=== PATIENT | female | born 1980 | race Caucasian/White ===

== ENCOUNTER 2018-04-20 16:03 | Inpatient (IN) | payer OTHER ==
[2018-04-20] MEDS ORDERED: NS 1,000 ML IV ONE (16:05)
--- NOTE | 2018-04-20 16:27 | EDPHY ---
H & P Time Seen by Provider: 04/20/18 16:05 HPI/ROS: HPI Lower abdominal pain. 38-year-old female by private vehicle with her . This patient reports that on Tuesday she developed mid to upper abdominal pain described as cramping achy across her mid abdomen and around her umbilicus. She reports that she had associated nausea with vomiting Tuesday night. She reports that she felt somewhat better Tuesday but Tuesday the pain started to migrate down to her right lower quadrant and has persisted. She has had some diarrhea today. She went to [facility] was seen by a nurse practitioner was told to come to the emergency department to be evaluated for possible appendicitis. Last meal included some saltines about an hour ago. No previous abdominal surgical history. Last menstrual period was April 14. ROS: Constitutional: No fever, no chills. No weakness. Eyes: No discharge. No changes in vision. ENT: No sore throat. No nasal congestion or rhinorrhea. Respiratory: No cough. No shortness of breath. Cardiac: No chest pain, no palpitations. Gastrointestinal: As above, no diarrhea. Genitourinary: No hematuria. No dysuria or increased frequency with urination. Musculoskeletal: No back pain. No neck pain. No myalgias or arthralgias. Skin: No rashes. Neurological: No headache. No focal weakness or altered sensation. Past medical history: She denies any significant past medical history. She does not take any prescription medications. Social history: Here with her . Nonsmoker. No alcohol. Physical Exam: General Appearance: Alert, no distress. This patient is responding to questions appropriately and in full sentences. This patient appears well- hydrated and well-nourished. Eyes: Pupils equal and round no pallor or injection. No lid edema, erythema or injection. Respiratory: There are no retractions, lungs are clear to auscultation with good air movement bilaterally. Cardiovascular: Regular rate and rhythm. No murmur. Gastrointestinal: Abdomen is soft with moderate right lower quadrant/right adnexal tenderness on palpation, no masses, bowel sounds normal. No focal tenderness at McBurney's point. No Ramos sign. Neurological: Motor sensory function is grossly intact. Cranial nerves are normal. Gait is normal. Skin: Warm and dry, no rashes. Musculoskeletal: Neck is supple and nontender. Extremities are symmetrical. All joints range without pain or impingement. Psychiatric: No agitation. No depression. Database: EKG: Imaging: CT abdomen and pelvis with IV contrast: Significant for what appears to be a retrocecal appendicitis. With possibly a small abscess near the tip of the cecum. What is seen of the appendix measures 9 mm in diameter. This caudal to that there is a 2 cm fluid-filled loculation which may be a small abscess. The right ovary appears okay. Pelvic venous congestion is noted. There is some wall thickening of the ileum and jejunum suggestive of an enteritis. Results were discussed with staff radiologist Dr. Johnathan Godoy. Procedures: Emergency department course: Vital signs reviewed. She is mildly tachycardic. Vital signs otherwise normal. IV was placed. She was started on IV normal saline with 1 L to be given over the next hour. At this time she declines pain medication or antiemetics. I discussed workup and CT scan for evaluation of acute appendicitis. She endorses. 5:45 p.m., patient re-evaluated. Results of CT scan and diagnosis of appendicitis discussed with her. Her medication allergies were reviewed. She will be started on Flagyl and ciprofloxacin in the emergency department. Right now she is declining pain medication. General surgery paged. 5:50 p.m., spoke with Dr. Janet Marinelli. Case discussed in detail with her. She will see this patient in the emergency department shortly and plan to admit the patient for operative management of acute appendicitis. The patient's remaining emergency department course under my care has been uneventful. She was admitted to the operating room under the care of Dr. Janet Marinelli. Differential Diagnosis: The differential diagnosis on this patient includes but is not limited to appendicitis, ruptured ovarian cyst, ovarian torsion, ectopic , urinary tract infection, ureterolithiasis, colitis. This represents a partial list of diagnoses considered. These considerations are based on history, physical exam, past history, reassessment and diagnostic testing. Smoking Status: Never smoked Constitutional: Initial Vital Signs Temperature (C) 36.8 C 04/20/18 16:07 Heart Rate 112 H 04/20/18 16:07 Respiratory Rate 16 04/20/18 16:07 Blood Pressure 102/63 04/20/18 16:07 O2 Sat (%) 98 04/20/18 16:07 O2 Delivery Mode Room Air Allergies/Adverse Reactions: No Known Allergies Allergy (Unverified 04/20/18 16:07) Home Medications: Medication Instructions Recorded NK [No Known Home Meds] 04/20/18 Medical Decision Making - Diagnostics Imaging Results: Imaging Impressions Abdomen CT 04/20/18 16:51 Impression: 1. The retrocecal appendix is partially visualized and appears thickened with adjacent periappendiceal edema and a possible contained 2.1 x 1.8 x 2.6 cm fluid and air-filled abscess near the expected appendiceal tip. The study is limited by the lack of enteric contrast and the paucity of intra-abdominal adipose. Nonetheless, surgical consultation is advised. There is free fluid inferior the right hepatic lobe and in the pelvic cul-de-sac. There is no evidence of pneumoperitoneum. 2. Suspect concurrent jejunal-ileal enteritis. 3. Pfu-nwpsm-jn-characterize hypodensities associated with the liver, and a tiny cortical cyst in lower pole the right kidney. 4. Appropriately-positioned intrauterine device. 5. Pelvic venous congestion. Findings were discussed with Tracey Mckinney MD at 17:41, on 04/20/2018. - Data Points Laboratory Results: Laboratory Results 04/20/18 16:20 04/20/18 16:20 04/20/18 04/20/18 04/20/18 16:20 16:20 16:20 WBC 13.34 10^3/uL H 10^3/uL (3.80-9.50) RBC 4.57 10^6/uL 10^6/uL (4.18-5.33) Hgb 12.9 g/dL g/dL (12.6-16.3) Hct 38.6 % % (38.0-47.0) MCV 84.5 fL fL (81.5-99.8) MCH 28.2 pg pg (27.9-34.1) MCHC 33.4 g/dL g/dL (32.4-36.7) RDW 13.0 % % (11.5-15.2) Plt Count 171 10^3/uL 10^3/uL (150-400) MPV 9.0 fL fL (8.7-11.7) Neut % (Auto) 82.3 % H % (39.3-74.2) Lymph % (Auto) 7.1 % L % (15.0-45.0) [place] % (Auto) 9.9 % % (4.5-13.0) Eos % (Auto) 0.0 % L % (0.6-7.6) Baso % (Auto) 0.1 % L % (0.3-1.7) Nucleat RBC Rel Count 0.0 % % (0.0-0.2) Absolute Neuts (auto) 10.97 10^3/uL H 10^3/uL (1.70-6.50) Absolute Lymphs (auto) 0.95 10^3/uL L 10^3/uL (1.00-3.00) Absolute Monos (auto) 1.32 10^3/uL H 10^3/uL (0.30-0.80) Absolute Eos (auto) 0.00 10^3/uL L 10^3/uL (0.03-0.40) Absolute Basos (auto) 0.02 10^3/uL 10^3/uL (0.02-0.10) Absolute Nucleated RBC 0.00 10^3/uL 10^3/uL (0-0.01) Immature Gran % 0.6 % % (0.0-1.1) Immature Gran # 0.08 10^3/uL 10^3/uL (0.00-0.10) Sodium 137 mEq/L mEq/L (135-145) Potassium 3.6 mEq/L mEq/L (3.3-5.0) Chloride 101 mEq/L mEq/L (97-110) Carbon Dioxide 25 mEq/l mEq/l (22-31) Anion Gap 11 mEq/L mEq/L (8-16) BUN 8 mg/dL mg/dL (7-23) Creatinine 0.6 mg/dL mg/dL (0.6-1.0) Estimated GFR > 60 Glucose 104 mg/dL H mg/dL (70-100) Calcium 8.8 mg/dL mg/dL (8.5-10.4) Total Bilirubin 1.0 mg/dL mg/dL (0.1-1.4) Conjugated Bilirubin 0.2 mg/dL mg/dL (0.0-0.5) Unconjugated Bilirubin 0.8 mg/dL mg/dL (0.0-1.1) AST 16 IU/L IU/L (14-46) ALT 21 IU/L IU/L (9-52) Alkaline Phosphatase 56 IU/L IU/L (38-126) Total Protein 7.4 g/dL g/dL (6.3-8.2) Albumin 4.1 g/dL g/dL (3.5-5.0) Lipase 97 IU/L IU/L (23-300) Beta HCG, Qual NEGATIVE Urine Color Urine Appearance Urine pH Ur Specific [place] Urine Protein Urine Ketones Urine Blood Urine Nitrate Urine Bilirubin Urine Urobilinogen Ur Leukocyte Esterase Urine RBC Urine WBC Ur Epithelial Cells Urine Mucus Urine Glucose 04/20/18 16:10 WBC RBC Hgb Hct MCV MCH MCHC RDW Plt Count MPV Neut % (Auto) Lymph % (Auto) [place] % (Auto) Eos % (Auto) Baso % (Auto) Nucleat RBC Rel Count Absolute Neuts (auto) Absolute Lymphs (auto) Absolute Monos (auto) Absolute Eos (auto) Absolute Basos (auto) Absolute Nucleated RBC Immature Gran % Immature Gran # Sodium Potassium Chloride Carbon Dioxide Anion Gap BUN Creatinine Estimated GFR Glucose Calcium Total Bilirubin Conjugated Bilirubin Unconjugated Bilirubin AST ALT Alkaline Phosphatase Total Protein Albumin Lipase Beta HCG, Qual Urine Color YELLOW Urine Appearance CLEAR Urine pH 6.0 (5.0-7.5) Ur Specific [place] 1.010 (1.002-1.030) Urine Protein NEGATIVE (NEGATIVE) Urine Ketones NEGATIVE (NEGATIVE) Urine Blood 3+ H (NEGATIVE) Urine Nitrate NEGATIVE (NEGATIVE) Urine Bilirubin NEGATIVE (NEGATIVE) Urine Urobilinogen NEGATIVE EU EU (0.2-1.0) Ur Leukocyte Esterase NEGATIVE (NEGATIVE) Urine RBC 5-10 /hpf H /hpf (0-3) Urine WBC 1-3 /hpf /hpf (0-3) Ur Epithelial Cells TRACE /lpf /lpf (NONE-1+) Urine Mucus TRACE /lpf /lpf (NONE-1+) Urine Glucose NEGATIVE (NEGATIVE) Medications Given: Ciprofloxacin/Dextrose (Cipro 400 Mg (Premix)) 200 mls @ 200 mls/hr IV EDNOW ONE PRN Reason: Protocol Stop: 04/20/18 18:55 Last Admin: 04/20/18 18:10 Dose: 200 mls Discontinued Medications Sodium Chloride (Ns) 1,000 mls @ 0 mls/hr IV EDNOW ONE; Wide Open PRN Reason: Protocol Stop: 04/20/18 16:06 Last Admin: 04/20/18 16:25 Dose: 1,000 mls Departure - Departure Disposition: [facility] Inpatient Acute Clinical Impression: Lower abdominal pain, Acute appendicitis
[2018-04-20 16:28] LABS: PLATELET COUNT 171 10^3/uL (150-400)
[2018-04-20] MEDS ORDERED: IOPAMIDOL (ISOVUE-300) 100 ML BTL ONE (16:57)
[2018-04-20] MEDS ORDERED: CIPROFLOXACIN 400 MG/DEXTROSE 200 ML IV ONE (17:56)
[2018-04-20] MEDS ORDERED: LR 1,000 ML IV ONE (18:09)
[2018-04-20] MEDS ORDERED: fentaNYL 100 MCG/2 ML INJ ONE ×2 (18:18→20:20)
[2018-04-20] MEDS ORDERED: LIDOCAINE 2% 5 ML SDV ONE (18:18)
[2018-04-20] MEDS ORDERED: ROCURONIUM 50 MG/5 ML VIAL ONE (18:18)
[2018-04-20] MEDS ORDERED: PROPOFOL 200 MG/20 ML VIAL ONE (18:18)
[2018-04-20] MEDS ORDERED: ONDANSETRON 4 MG/2 ML VIAL ONE (18:20)
[2018-04-20] MEDS ORDERED: DEXAMETHASONE 4 MG/ML VIAL ONE (18:20)
[2018-04-20] MEDS ORDERED: BUPIVACAINE 0.5% 30 ML SDV ONE (18:21)
--- NOTE | 2018-04-20 18:31 | PDANEPAE ---
ANE History of Present Illness 38 year old female presents with symptoms of acute appendicitis now for OR for lap appy. ANE Past Medical History - Cardiovascular History Hx Hypertension: No Hx Arrhythmias: No Hx Chest Pain: No Hx Coronary Artery / Peripheral Vascular Disease: No Hx CHF / Valvular Disease: No Hx Palpitations: No - Pulmonary History Hx COPD: No Hx Asthma/Reactive Airway Disease: No Hx Recent Upper Respiratory Infection: No Hx Oxygen in Use at Home: No Hx Sleep Apnea: No - Endocrine History Hx Diabetes: No Hypothyroid: No Hyperthyroid: No Obesity: no - Renal History Hx Renal Disorders: No - Liver History Hx Hepatic Disorders: No - Neurological & Psychiatric Hx Hx Neurological and Psychiatric Disorders: No - Cancer History Hx Cancer: No - Congenital Disorder History Hx Congenital Disorders: No - GI History GERD: no - Chronic Pain History Chronic Pain: No ANE Review of Systems Review of systems is: negative Review of Systems: - Exercise capacity Exercise capacity: >=4 METS ANE Patient History - Allergies Allergies/Adverse Reactions: No Known Allergies Allergy (Unverified 04/20/18 16:07) - Home Medications Home medications: home medication list seen and reviewed Home Medications: NK [No Known Home Meds] 04/20/18 [Last Taken Unknown] - Anes Hx Anes Hx: no prior problems - Smoking Hx Smoking Status: Never smoked Marijuana use: No - Alcohol Use Alcohol Use: None - Family Anes Hx Family Anes Hx: neg - N/A ANE Labs/Vital Signs - Labs Result Diagrams: 04/20/18 16:20 04/20/18 16:20 - Vital Signs Vital Signs: reviewed preoperatively; see RN documention for details Blood Pressure: 99/51 Heart Rate: 87 Respiratory Rate: 18 O2 Sat (%): 99 Height: 160.02 cm Weight: 48.988 kg ANE Physical Exam - Airway Neck exam: FROM Mallampati Score: Class 1 Mouth exam: normal dental/mouth exam - Pulmonary Pulmonary: no respiratory distress - Cardiovascular Cardiovascular: regular rate and rhythym - ASA Status ASA Status: I, E ANE Anesthesia Plan Anesthesia Plan: general endotracheal anesthesia Total IV Anesthesia: No
[2018-04-20] MEDS ORDERED: MIDAZOLAM 2 MG/2 ML VIAL ONE (18:32)
[2018-04-20] MEDS ORDERED: ACETAMINOPHEN 325 MG TAB PO PRN (18:40)
[2018-04-20] MEDS ORDERED: HYDROCODONE/APAP 5/325 TAB PO PRN (18:41)
[2018-04-20] MEDS ORDERED: ONDANSETRON 4 MG/2 ML VIAL IVP PRN ×2 (18:41→19:34)
[2018-04-20] MEDS ORDERED: D5W 1/2 NS W/ 20 KCl/L 1,000 ML IV SCH (18:45)
[2018-04-20] MEDS ORDERED: MIDAZOLAM 2 MG/2 ML VIAL IVP ONE (18:47)
--- NOTE | 2018-04-20 18:58 | GHP ---
[f rep st] HISTORY AND PHYSICAL DATE OF ADMISSION: 04/20/2018 CHIEF COMPLAINT: Ruptured appendicitis. HISTORY OF PRESENT ILLNESS: This patient is a 38-year-old woman who initially developed vague abdominal pain on Tuesday. It got a little bit better on Tuesday and then has progressed with associated nausea and is now located in the right lower quadrant. Due to the change in the pain, she was evaluated and came to the emergency room. Nothing makes the pain better. It does not radiate. Movement makes it worse. She had a CT scan performed of her abdomen and pelvis which showed a retrocecal appendix that was slightly inflamed, with a contained abscess. There is also a small amount of fluid by her liver. PAST MEDICAL HISTORY: None. PAST SURGICAL HISTORY: None. 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 She is . She is a nonsmoker. FAMILY HISTORY: Noncontributory. REVIEW OF SYSTEMS: A 10-point review of systems is negative except per HPI with the exception of some diarrhea. PHYSICAL EXAMINATION: VITAL SIGNS: Reviewed. GENERAL: A pleasant, well- nourished, well-groomed woman lying on bed, at bedside. HEENT: Normocephalic. No gross hearing deficits. Mucous membranes moist. Pupils are equal and round. No scleral icterus. LUNGS: Clear to auscultation bilaterally. No increased work of breathing. CARDIAC: Regular rate. No peripheral edema. ABDOMEN: Soft. She is tender in the right lower quadrant. She is slightly distended. No surgical incisions. MUSCULOSKELETAL: Normal nails. SKIN: Warm and dry. PSYCHIATRIC: Mood and affect normal. NEUROLOGIC: Grossly intact. LABORATORY WORK: I personally reviewed her laboratory work. Her white count is 13,000. IMAGING: I personally reviewed the images on her CT scan and can see the inflammatory changes behind the cecum and a small amount of fluid by the liver. I do not see any signs of bowel obstruction. I do visualize an IUD. IMPRESSION AND PLAN: This patient is a 38-year-old woman with acute appendicitis. I will take her to the operating room for a laparoscopic appendectomy with washout. The risks and benefits, including, but not limited to, stroke, heart attack, , blood clots, infection, bleeding, damage to bowel or bladder, or the need for additional procedures were all discussed. I explained to the patient that if she indeed has a perforated appendicitis that her hospital stay could be 3 to 5 days. I also cautioned that if she immediately felt better but then developed fevers, chills, or increasing pain that she could have a delayed abscess. We will keep her in the hospital certainly tonight and on IV antibiotics. DISCHARGE CRITERIA: Pain being controlled. Return of bowel function and ambulating independently. /[id number]/MODL MTDD
[2018-04-20] MEDS ORDERED: PHENYLEPHRINE HCL 100 MCG/ML SYR ONE (19:17)
[2018-04-20] MEDS ORDERED: fentaNYL 100 MCG/2 ML INJ IVP PRN (19:34)
[2018-04-20] MEDS ORDERED: HYDROmorphONE/DILAUDID 1 MG/ML INJ IVP PRN (19:34)
[2018-04-20] MEDS ORDERED: NALOXONE HCL 0.4 MG/ML INJ IVP PRN (19:34)
[2018-04-20] MEDS ORDERED: PROMETHAZINE HCL 25 MG/ML INJ IVP PRN (19:34)
[2018-04-20] MEDS ORDERED: LR 500 ML IV PRN (19:34)
[2018-04-20] MEDS ORDERED: SUGAMMADEX SODIUM 200 MG/2 ML VIAL IVP ONE (19:36)
[2018-04-20] MEDS ORDERED: KETOROLAC 30 MG/1 ML SDV ONE (19:38)
--- NOTE | 2018-04-20 19:51 | POSTOPPROG ---
Post Op Note Date of Operation: 04/20/18 Surgeon: Janet Marinelli Anesthesiologist: argentina Anesthesia: GET(General Endotracheal) Pre-op Diagnosis: acute perf appendix Post-op Diagnosis: same Indication: 38 yo with perf appendix Procedure: lap appy with washout Findings: gangrenous appendix Inf/Abcess present in the surg proc area at time of surgery?: Yes Depth: Organ Space EBL: Minimal Drains: Casey Armenta Specimen(s): micro and path
--- NOTE | 2018-04-20 21:45 | POSTANESTH ---
Post Anesthetic Evaluation Cardiovascular Status: Normal, Stable, Similar to Pre-Op Cond Respiratory Status: Normal, Stable, Similar to Pre-op Cond. Level of Consciousness/Mental Status: Can Participate in Eval, Alert and Oriented Pain Control: Adequate, Prn Tx Ordered Nausea/Vomiting Control: Adequate, Prn Tx Ordered Complications Possibly Related to Anesthesia: None Noted
--- NOTE | 2018-04-21 00:09 | GOP ---
[f rep st] OPERATIVE REPORT DATE OF OPERATION: 04/20/2018 SURGEON: Janet Marinelli MD ANESTHESIA: General. ANESTHESIOLOGIST: Dr. Johnathan Wesley. PREOPERATIVE DIAGNOSIS: Acute perforated appendicitis. POSTOPERATIVE DIAGNOSIS: Acute perforated appendicitis. PROCEDURE PERFORMED: Laparoscopic appendectomy with washout. FINDINGS: Gangrenous appendix with perforation. Serosanguineous fluid above the liver as well as in the pelvis. SPECIMENS: Appendix for microbiology and for pathology. ESTIMATED BLOOD LOSS: 5 cc. INDICATIONS: The patient is a 38-year-old woman who noted abdominal pain on Tuesday, it became a vivian le better on Tuesday and then localized to the right lower quadrant. She presented to the emergency room. CT scan was performed which showed a retrocecal appendix with contained perforation as well as fluid above the liver and in the pelvis. DESCRIPTION OF PROCEDURE: Patient was brought into the operating room, placed supine on the table an d general anesthesia was administered. Her abdomen was prepped and draped in the usual sterile fashi on. I infiltrated all sites with 0.5% Marcaine prior to making incisions. I made an incision at her umbilicus. I elevated it. I inserted the Veress needle, it passed the hanging drop test. Her abdo men insufflated easily to a pressure of 15 mmHg. I placed a 5 mm trocar with a camera at this site. There were no injuries from Veress needle placement. Under direct vision, I placed a 5 mm suprapubi c trocar and a 10 mm trocar in the left lower quadrant. Her appendix was retrocecal and as I rolled the appendix there was obvious perforation. She had serosanguineous fluid above the liver as well as in the pelvis. I performed suction irrigation. I then divided the mesoappendix which was inflamed with the Harmonic Scalpel. I came under the appendix with a [place] and then divided it with an End o-CHRIST 45 white load. I divided the remaining mesoappendix with the Harmonic Scalpel, placed in an En doCatch bag and retrieved via the 10 mm trocar. A section of the perforation was sent for culture. The remaining appendix was sent for pathology. I performed suction irrigation. I placed a 15 round silicone drain and sutured this into place with 3-0 nylon. I explored her abdomen, no injuries noted . No other purulent pockets noted. I removed the ports under direct vision and the fascia at the 10 mm trocar site was closed with 0 Vicryl, skin closed with 4-0 Monocryl and Dermabond applied. She w as awakened in the operating room, extubated, transferred to PACU in stable condition. /[id number]/MODL
[2018-04-21] MEDS: KETOROLAC 15 MG/1 ML SDV IVP SCH ×4 (02:55→21:26)
[2018-04-21 06:22] LABS: PLATELET COUNT 136 10^3/uL (150-400)
--- NOTE | 2018-04-21 08:14 | SOAPPROG ---
SOAP Progress Note Assessment/Plan: Assessment: POD #1 s/p appendectomy for perforated appendicitis Pain is controlled with Toradol and Morphine On Rocephin and Flagyl/ transition to oral as outpatient for total of 10 days Blood pressure low but patient states history of low blood pressures, currently asymptomatic, fluids running WBC down to 8.88 Neuro: Continue pain medications as needed Respiratory: monitor vitals Cardio: monitor for hemodynamic instability GI: lite diet, advanced as tolerated DVT prophylaxis: SCD's Dispo: Waiting for passage of gas and patient to tolerate clears Likely home with GUTIERREZ drain, follow-up on Tuesday S: feels good with minimal pain, has gotten up and walked to bathroom, no nausea , vomiting, fever, chills O: laying in bed incisions are dry, clean, and intact GUTIERREZ= approx. 5cc out clear/sanguneous output CTAB Regular rate and rhythm Mild diffuse abdominal tenderness, mild distention 1 BS heard but still quiet Rounded on patient again at 1611. Patient has passed gas. Little to no pain. GUTIERREZ drain at 50cc. Trying to advance diet. Will most likely go home tomorrow. 04/21/18 08:14 04/21/18 08:55 04/21/18 16:12 Objective: Vital Signs Temp Pulse Resp BP Pulse Ox 36.9 C 62 16 77/48 L 96 04/21/18 04:20 04/21/18 04:20 04/21/18 04:20 04/21/18 04:20 04/21/18 04:20 Microbiology 04/20/18 19:30 Gram Stain - Final Appendix - Tissue Laboratory Results 04/21/18 04:50 04/20/18 04/21/18 04/22/18 05:59 05:59 05:59 Intake Total 1800 Output Total 340 Balance 1460 ICD10 Worksheet Patient Problems: Problems Problem Status Onset Acute appendicitis Acute Lower abdominal pain Acute
--- NOTE | 2018-04-21 13:29 | PDMN ---
Medical Necessity Medical necessity: MCG: S185- appendectomy with abscess or peritonitis by Lap 2 days: Lap appy with washout - gangrenous appendix with perforation
[2018-04-22] MEDS: KETOROLAC 15 MG/1 ML SDV IVP SCH ×2 (04:07→10:00)
--- NOTE | 2018-04-22 09:15 | SOAPPROG ---
SOAP Progress Note Assessment/Plan: Assessment: 38 FEMALE SP PERFORATED APPE/ DOING WELL/ AFEBRILE/ MINIMAL GUTIERREZ DRAIN HEENT NONICTERIC CHEST CLEAR COR RR ABD SOFT, NONTENDER, +BS, WOUNDS CLEAN Plan:HOME TODAY ON AUGMENTIN 04/22/18 09:13 Objective: Vital Signs Temp Pulse Resp BP Pulse Ox 37.2 C 90 14 88/52 L 96 04/22/18 05:00 04/22/18 05:00 04/22/18 05:00 04/22/18 05:00 04/21/18 23:42 04/21/18 04/22/18 04/23/18 05:59 05:59 05:59 Intake Total 575 Output Total 250 Balance 325 ICD10 Worksheet Patient Problems: Problems Problem Status Onset Acute appendicitis Acute Lower abdominal pain Acute
[2018-04-22 14:15] VITALS: BP 83/47
== END 2018-04-22 10:45 | disposition home or self-care (01) | DRG 340 ==
LOC: FOB 21:02 → OBSVTOIN 04-21 13:13
PROVIDERS: ADMIT Surgery; ATTEND Surgery
PROC: 3E1M38Z Irrigation of Peritoneal Cavity using Irrigating Substance, Percutaneous Approach (ICD-10-PCS; principal; 2018-04-20 19:00)
PROC: 0DTJ4ZZ Resection of Appendix, Percutaneous Endoscopic Approach (ICD-10-PCS; principal; 2018-04-20 19:00)
DX: K35.2 Acute appendicitis with generalized peritonitis (principal); E86.9 Volume depletion, unspecified; N94.89 Other specified conditions associated with female genital organs and menstrual cycle
CPT/HCPCS: G0378; J0696; J0744; J1100; J1885; J2250; J2270; J2370; J2405; J2704; J3010; Q9967

== ENCOUNTER 2018-04-29 12:02 | Emergency (ER) | payer OTHER ==
[2018-04-29] MEDS ORDERED: NS 1,000 ML IV ONE ×2 (13:13→14:19)
--- NOTE | 2018-04-29 13:16 | EDPHY ---
H & P Time Seen by Provider: 04/29/18 12:47 HPI/ROS: CHIEF COMPLAINT: Fever, diarrhea HISTORY OF PRESENT ILLNESS: Patient is a 38-year-old female who presents emergency department with fever and diarrhea. The patient had her appendix removed by Dr. Marinelli on 04/20/2018. She was discharged from the hospital on 2017. She states that she did not tolerate the Augmentin well. This was causing her have diarrhea and abdominal cramping. Her antibiotic was discontinued. Her symptoms improved. However, last night at 2:30 a.m. She awoke with diarrhea. She also noted a fever. She has no abdominal pain. No nausea or vomiting. No dysuria frequency. No redness surrounding her incision sites. REVIEW OF SYSTEMS: My complete review of systems is negative except as mentioned in the HPI. Past Medical/Surgical History: Negative Past surgical history: Appendectomy Social history: Patient does not smoke Smoking Status: Never smoked Physical Exam: Vitals noted GENERAL: Well-appearing, in no acute distress, alert. HEENT: Eyes normal to inspection, normal pharynx, no signs of dehydration. NECK: No thyromegaly, no lymphadenopathy, supple. RESPIRATORY: Clear to auscultation bilaterally, no rales, rhonchi or wheezing. CVS: Regular rate and rhythm, no rubs, murmurs, or gallops. ABDOMEN: Soft, nontender, nondistended, no organomegaly. Benign. Incision sites are clean dry and intact BACK: Normal to inspection, no CVA tenderness. SKIN: Normal color, no rash, warm, dry. No pallor. EXTREMITIES: No pedal edema, no calf tenderness, no Homans sign or cords, no joint swelling. NEURO/PSYCH: Alert and oriented, normal mood and affect, normal motor sensory exam. Constitutional: Initial Vital Signs Temperature (C) 37.2 C 04/29/18 12:14 Heart Rate 109 H 04/29/18 12:14 Respiratory Rate 16 04/29/18 12:14 Blood Pressure 92/48 L 04/29/18 12:14 O2 Sat (%) 98 04/29/18 12:14 O2 Delivery Mode Room Air Allergies/Adverse Reactions: No Known Allergies Allergy (Verified 04/29/18 12:14) Home Medications: Medication Instructions Recorded Ciprofloxacin [Cipro] 500 mg PO BID #7 tab 04/29/18 metroNIDAZOLE [Flagyl 500 mg (*)] 500 mg PO BID 7 Days #14 tab 04/29/18 Medical Decision Making - Diagnostics Imaging Results: Imaging Impressions Abdomen CT 04/29/18 13:13 Impression: Status post appendectomy with no definite postoperative abscess seen. There is peritoneal fluid seen which may reflect peritendinitis.. Results discussed with LORIE AYALA M.D. on 04/29/2018 at 15:29. ED Course/Re-evaluation: In the emergency department I discussed possible etiologies with the patient. I answered all her questions. I discussed the case with Dr. Esparza in. She recommends CT imaging. The patient had an outpatient CBC prior [place] [id number]. I discussed the plan with the patient. I answered all her questions. CT of the abdomen pelvis with IV contrast: Please refer the dictated report by Dr. Hyman. I reviewed the images with him. There is no drainable fluid collection. He did not visualize an abscess. I discussed the results with the patient. She was feeling well on recheck. I paged Dr. Bustamante. Patient was written a perscription of Cipro and Flagyl. She will take the entire course of antibiotics. She will follow up with Dr. Marinelli. Pt was given warnings prior to leaving. Differential Diagnosis: My differential includes but is not limited to abscess, adhesion, small-bowel obstruction, colitis, diverticulitis, bacteremia, sepsis, urinary tract infection, cellulitis - Data Points Laboratory Results: Laboratory Results 04/29/18 12:16 04/29/18 04/29/18 04/29/18 14:25 12:50 12:16 Sodium 141 mEq/L mEq/L (135-145) Potassium 3.6 mEq/L mEq/L (3.3-5.0) Chloride 103 mEq/L mEq/L (97-110) Carbon Dioxide 21 mEq/l L mEq/l (22-31) Anion Gap 17 mEq/L H mEq/L (8-16) BUN 12 mg/dL mg/dL (7-23) Creatinine 0.8 mg/dL mg/dL (0.6-1.0) Estimated GFR > 60 Glucose 93 mg/dL mg/dL (70-100) Calcium 9.3 mg/dL mg/dL (8.5-10.4) Beta HCG, Qual NEGATIVE Urine Color Pending Urine Appearance Pending Urine pH Pending Ur Specific [place] Pending Urine Protein Pending Urine Ketones Pending Urine Blood Pending Urine Nitrate Pending Urine Bilirubin Pending Urine Urobilinogen Pending Ur Leukocyte Esterase Pending Urine RBC Pending Urine WBC Pending Ur Epithelial Cells Pending Urine Glucose Pending Medications Given: Discontinued Medications Sodium Chloride (Ns) 1,000 mls @ 0 mls/hr IV EDNOW ONE; Wide Open PRN Reason: Protocol Stop: 04/29/18 13:14 Last Admin: 04/29/18 13:22 Dose: 1,000 mls Sodium Chloride (Ns) 1,000 mls @ 0 mls/hr IV ONCE ONE; Wide Open PRN Reason: Protocol Stop: 04/29/18 14:20 Last Admin: 04/29/18 14:27 Dose: 1,000 mls Departure - Departure Disposition: Home, Routine, Self-Care Clinical Impression: Fever Qualifiers: Fever type: unspecified Qualified Code(s): R50.9 - Fever, unspecified Condition: Good Instructions: Fever in Adults (ED) Additional Instructions: Return with increasing pain, persistent fever, vomiting, inability to tolerate antibiotics or any other concerns. Referrals: Janet Marinelli MD [Medical Doctor] - 2-3 days without fail Prescriptions: Ciprofloxacin [Cipro] 500 mg PO BID #7 tab metroNIDAZOLE [Flagyl 500 mg (*)] 500 mg PO BID 7 Days #14 tab
[2018-04-29] MEDS ORDERED: IOPAMIDOL (ISOVUE-300) 100 ML BTL ONE (14:00)
[2018-04-29 16:14] VITALS: BP 96/49
== END 2018-04-29 16:13 | disposition home or self-care (01) ==
DX: R50.9 Fever, unspecified (principal); E86.9 Volume depletion, unspecified
CPT/HCPCS: Q9967

== ENCOUNTER 2018-05-05 15:42 | Emergency (ER) | payer OTHER ==
--- NOTE | 2018-05-05 15:35 | EDPHY ---
H & P Time Seen by Provider: 05/05/18 15:42 Constitutional: Initial Vital Signs Temperature (C) 36.6 C 05/05/18 15:42 Heart Rate 88 05/05/18 15:42 Respiratory Rate 20 05/05/18 15:42 Blood Pressure 97/58 L 05/05/18 15:42 O2 Sat (%) 100 05/05/18 15:42 O2 Delivery Mode Room Air Allergies/Adverse Reactions: No Known Allergies Allergy (Verified 04/29/18 12:14) Home Medications: Medication Instructions Recorded metroNIDAZOLE [Flagyl 500 mg (*)] 500 mg PO BID 7 Days #14 tab 04/29/18 levAQUIN (*) 05/05/18 Medical Decision Making ED Course/Re-evaluation: CHIEF COMPLAINT: Panic attack, hyperventilating HISTORY OF PRESENT ILLNESS: The patient is a 38 y/o female arriving via EMS complaining of a panic attack and hyperventilating. On Tuesday she had another panic attack, but was able to calm herself. Prior to the panic attack today she had a headache and ocular migraine associated with blurry vision. Today when EMS arrived, she had difficulty breathing, bronchospasms, a respiratory rate of 40, as well as numbness and tingling in her extremities. EMS was able to passenger coach driver the patient through breathing exercises and her respiratory rate decreased to 20. Upon arriving to the emergency department she is still having some numbness and tingling in her extremities. Denies chest pain, abdominal pain, urinary or bowel complaints, fever. REVIEW OF SYSTEMS: A 10 point review of systems was performed and is negative with the exception of the elements mentioned in the history of present illness. PHYSICAL EXAM: HR, BP, O2 Sat of 97%, RR. Temp noted General Appearance: Anxious, sitting up, alert, well hydrated, appropriate, and non-toxic appearing. Head: Atraumatic without scalp tenderness or obvious injury Eyes: Pupils equal, round, reactive to light and accommodation, EOMI, no trauma , no injection. Ears: Clear bilaterally, no perforation, normal landmarks Nose: Atraumatic, no rhinorrhea, clear. Throat: There is no erythema or exudates, no lesions, normal tonsils, mucus membranes moist. Neck: Supple, nontender, no lymphadenopathy. Respiratory: No retractions, no distress, no wheezes, and no accessory muscle use. Lungs are clear to auscultation bilaterally. Cardiovascular: Sinus tachycardia, no murmurs, rubs, or gallops. Bilateral carotid, radial, dorsalis pedis, and posterior tibial pulses intact. Good capillary refill all extremities. Gastrointestinal: Abdomen is soft, nontender, non-distended, no masses, no rebound, no guarding, no peritoneal signs. Musculoskeletal: Carpal pedal spasms. Normal active ROM of all extremities, atraumatic. Neurological: Alert, appropriate, and interactive. The patient has normal DTRs and non-focal cranial nerves, motor, sensory, and cerebellar exam. Skin: No rashes, good turgor, no nodules on palpation. Past medical history: Panic attack Past surgical history: Appendectomy Family history: Denies Social history: , lives in [place], employed at [employer] DIFFERENTIAL DIAGNOSIS: The differential diagnosis for the patient's shortness of breath included but was not limited to panic attack, anxiety, pneumonia, myocardial infarction, acute mountain sickness, high altitude pulmonary edema, congestive heart failure , and pulmonary embolus. MEDICAL DECISION MAKING: The patient is a 38 y/o female arriving via EMS presenting with a panic attack and hyperventilating. During my exam she started to have another panic attack associated with carpal pedal spasms and stating she "can't breathe'. Her O2Sats remained in the high 90's. She is also having a difficult time expressing herself. 1mg IV Ativan administered. 1647: Reassessed patient, she continues to feel better after Ativan. She continues to have good O2Sats. Return precautions provided; patient is comfortable with this plan. - Data Points Medications Given: Discontinued Medications Lorazepam (Ativan Injection) 1 mg IVP EDNOW ONE Stop: 05/05/18 15:51 Last Admin: 05/05/18 15:51 Dose: 1 mg Departure - Departure Disposition: Home, Routine, Self-Care Clinical Impression: Panic attack Condition: Good Instructions: Anxiety (ED), Panic Attack (ED) Additional Instructions: 1. Follow-up with your primary doctor within 72 hours. 2. Return to the Emergency Department for fever, chest pain, shortness of breath , increasing pain or other worsening of condition. Referrals: [facility],. [Clinic] - As per Instructions Report Scribed for: Jacky Dowell Report Scribed by: Rosy Crawford Date of Report: 05/05/18 Time of Report: 15:41
[2018-05-05] MEDS ORDERED: LORazepam 2 MG/ML INJ ONE (15:48)
[2018-05-05] MEDS ORDERED: LORazepam 2 MG/ML INJ IVP ONE (15:50)
[2018-05-05 16:56] VITALS: BP 103/71
== END 2018-05-05 16:54 | disposition home or self-care (01) ==
LOC: EDUNIT#
DX: F41.0 Panic disorder [episodic paroxysmal anxiety] (principal)
CPT/HCPCS: 96374; J2060